=== PATIENT | male | born 1950 | race Caucasian/White ===

== ENCOUNTER 2022-03-09 09:39 | Emergency (ER) | payer MEDICARE, SELFPAY ==
[2022-03-09 10:37] VITALS: BP 175/81; PULSE 60; RESP 20; TEMP 36.8; O2SAT 98; BMI 38.0
--- NOTE | 2022-03-09 10:42 | DI.RAD.S_ITS ---
PROCEDURE: XR FOOT LT MIN 3V INDICATIONS: fall TECHNIQUE: 3 views of the foot were acquired. COMPARISON: None. FINDINGS: Bones: No acute appearing fractures or dislocations. No suspicious bony lesions. The medial navicular bone demonstrates an unusual appearance, with an apparent partially fused os tibiale externum. There is focal prominent degenerative change seen of the 1st metatarsophalangeal joint, with prominent joint space narrowing with osteophyte formation, including mild fragmentation. Soft tissues: No tibiotalar joint effusion. Achilles tendon appears normal. IMPRESSION: Negative for acute fracture. 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 Abnormal navicular bone, with a partially fused os tibiale externum. Dictated by: Bola Parrish M.D. on 03/09/2022 at 10:24 Approved by: Bola Parrish M.D. on 03/09/2022 at 10:25
[2022-03-09 11:18] VITALS: BP 150/65; PULSE 60; RESP 14; TEMP 37; O2SAT 97
--- NOTE | 2022-03-09 13:33 | ED.LOWEXIN ---
HPI - Extremity Injury (Lower) <BEBA Guzman - Last Filed: 03/09/22 14:51> General Chief Complaint: Trauma Stated Complaint: fall,Left foot injury Time Seen by Provider: 03/09/22 13:04 Source: patient Mode of arrival: Family Vehicle History of Present Illness HPI Narrative: This is a 71-year-old gentleman who presents to the emergency department complaining of left foot injury from a fall he had 3 days ago and states it was in the middle the night and he does not remember what happened to his left foot. He complains of pain on the lateral aspect and with bearing weight, states that he has been taking ibuprofen and his pain is still there, denies history of diabetes, denies open wound, states he has a history of athlete's foot but states it is under control. Denies any tenderness to the skin, history of neuropathy, sensation changes, or other abnormality. He is traveling, states that when he walks on his left foot it is painful in the ball of his foot and along the lateral aspect. Related Data Previous Rx's Medication Instructions Recorded hydrocodone 5 mg-acetaminophen 325 1 tab PO BID #10 tabs 03/09/22 mg tablet Allergies Allergy/AdvReac Type Severity Reaction Status Date / Time No Known Drug Allergies Allergy Verified 03/09/22 10:36 Review of Systems <BEBA Guzman - Last Filed: 03/09/22 14:51> Review of Systems ROS Unobtainable: All systems reviewed & are unremarkable except as noted in HPI and below Patient History <BEBA Guzman - Last Filed: 03/09/22 14:51> Social History Smoking Status: Former smoker Smoking Status: Former smoker alcohol intake frequency: 0-2 drinks per day Substance Use Type: does not use Exam <BEBA Guzman Last Filed: 03/09/22 14:51> Narrative Exam Narrative: Reviewed vitals signs and nursing notes. General: cooperative, comfortable, in no acute distress, well groomed MSK: moves all extremities, neurovascularly intact, no weakness, normal tone, patient is obese, left lateral foot with tenderness over the proximal 5th metatarsal head without crepitus, bogginess, wound, blister, or erythema. Mild ecchymosis present to the plantar aspect, patient has been sitting upright in a chair with dependent foot for many hours in the waiting room. Neurovascularly intact, PT and DP pulses are 2+, there is fungal infection of the toenails, no wound associated with. Brisk cap refill Skin: brisk capillary refill, without pallor or erythema Neuro: normal speech and cognition, A&O x3, ambulatory, clear speech Psych: mental status is grossly normal, congruent mood, normal affect, pleasant and cooperative Initial Vital Signs Initial Vital Signs: Vital Signs Temperature 98.2 F 03/09/22 10:37 Pulse Rate 60 03/09/22 10:37 Respiratory Rate 20 03/09/22 10:37 Blood Pressure 175/81 H 03/09/22 10:37 Pulse Oximetry 98 03/09/22 10:37 Oxygen Delivery Method 03/09/22 10:37 <Cherry Morales DO - Last Filed: 03/10/22 12:46> Initial Vital Signs Initial Vital Signs: Vital Signs Temperature 98.2 F 03/09/22 10:37 Pulse Rate 60 03/09/22 10:37 Respiratory Rate 20 03/09/22 10:37 Blood Pressure 175/81 H 03/09/22 10:37 Pulse Oximetry 98 03/09/22 10:37 Oxygen Delivery Method 03/09/22 10:37 Procedures <BEBA Guzman - Last Filed: 03/09/22 14:51> Orthopedic Splinting/Casting Injury #1: Lower Extremity Injury Location: foot Lower Extremity Immobilizer: post-op shoe Post splinting neuro exam: intact and no change Post splinting vascular exam: no change Placed by: Nursing Additional Comments: The ortho shoe improved based and pain Course <BEBA Guzman - Last Filed: 03/09/22 14:51> Orders Ordered: Discontinued Medications Hydrocodone Bitart/Acetaminophen (Hydrocodone/Acet 5/325 Tablet) 1 tab PO NOW ONE Stop: 03/09/22 13:34 Last Admin: 03/09/22 13:45 Dose: 1 tab Documented By: RB Ketorolac Tromethamine (Ketorolac 30 Mg/Ml Vial) 15 mg IM NOW ONE Stop: 03/09/22 13:33 Last Admin: 03/09/22 13:45 Dose: 15 mg Documented By: RB Vital Signs Vital signs: Vital Signs - 8 hr 03/09/22 10:37 03/09/22 11:18 03/09/22 13:58 Temperature 98.2 F 98.6 F 98.0 F Pulse Rate 60 60 60 Respiratory Rate 20 14 Blood Pressure 175/81 H 150/65 H 149/67 H Pulse Oximetry 98 97 98 Oxygen Delivery Method Room Air Room Air Room Air <Cherry Morales DO - Last Filed: 03/10/22 12:46> Orders Ordered: Discontinued Medications Hydrocodone Bitart/Acetaminophen (Hydrocodone/Acet 5/325 Tablet) 1 tab PO NOW ONE Stop: 03/09/22 13:34 Last Admin: 03/09/22 13:45 Dose: 1 tab Documented By: RB Ketorolac Tromethamine (Ketorolac 30 Mg/Ml Vial) 15 mg IM NOW ONE Stop: 03/09/22 13:33 Last Admin: 03/09/22 13:45 Dose: 15 mg Documented By: RB Vital Signs Vital signs: Vital Signs - 8 hr 03/09/22 10:37 03/09/22 11:18 03/09/22 13:58 Temperature 98.2 F 98.6 F 98.0 F Pulse Rate 60 60 60 Respiratory Rate 20 14 Blood Pressure 175/81 H 150/65 H 149/67 H Pulse Oximetry 98 97 98 Oxygen Delivery Method Room Air Room Air Room Air MDM - Extremity Injury (Lower) <BEBA Guzman - Last Filed: 03/09/22 14:51> Imaging Data Extremity x-ray #1: Radiologist's Impression: PROCEDURE:? XR FOOT LT MIN 3V ? INDICATIONS:? fall ? TECHNIQUE:? 3 views of the foot were acquired.? ? COMPARISON:? None. ? FINDINGS:? ? Bones:? No acute appearing fractures or dislocations.? No suspicious bony lesions.? ? The medial navicular bone demonstrates an unusual appearance, with an apparent partially fused os tibiale externum. ? There is focal prominent degenerative change seen of the 1st metatarsophalangeal joint, with prominent joint space narrowing with osteophyte formation, including mild fragmentation. ? Soft tissues:? No tibiotalar joint effusion.? Achilles tendon appears normal.? ? ? IMPRESSION:? Negative for acute fracture. ? 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 ? Abnormal navicular bone, with a partially fused os tibiale externum. ? ? Dictated by: Bola Parrish M.D. on 03/09/2022 at 10:24 ? ? Approved by: Bola Parrish M.D. on 03/09/2022 at 10:25 ? [facility] Narrative Medical decision making narrative: This is a 71-year-old gentleman presents emergency department after a fall he had 3 days ago injuring his left foot. X-rays negative for acute fracture, prominent focal 1st metatarsophalangeal joint degenerative changes. 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 Patient was nontender over this area, dorsiflexion and plantar extension intact, he is neurovascularly intact, without open wound, or changes to range of motion. Patient was fitted in orthopedic shoe, encouraged to follow-up with Podiatry and his PCP when he gets home next week and to elevate, use NSAIDs, ice, Tylenol as needed for his pain. He was given a prescription hydrocodone to use as needed. Patient is appropriate and amenable to discharge home. Vital signs are stable on repeat examination is unremarkable. Patient has been informed of results. Patient has been given strict return to ER precautions for any new or worsening symptoms. Patient understands to follow up closely with outpatient providers as instructed. Patient understands plan and agrees to discharge home. All questions and concerns answered at this time. Discharge Plan Departure Patient Disposition: Home Clinical Impression: Fall Qualifiers: Encounter type: initial encounter Qualified Code(s): W19.XXXA - Unspecified fall, initial encounter Foot sprain Qualifiers: Encounter type: initial encounter Laterality: left Qualified Code(s): S93.602A - Unspecified sprain of left foot, initial encounter Instructions: DI for Foot Sprain Activity Restrictions/Additional Instructions: *You have been diagnosed with [a left foot sprain] X-ray does not show any acute findings in your left foot. This is most likely tendon and ligament injury which takes 1-2 weeks typically to heal. Please take ibuprofen 600 mg every 6 hours with 650 mg of Tylenol, please stay hydrated, use your ortho shoe for the next 1-2 weeks while ambulating, this will help reduce further strain on those ligaments and tendons. Please use pain medicine as needed for breakthrough pain, your prescription is available [facility]. I hope you feel better soon, please follow-up with Podiatry when you get back home if you have ongoing foot pain, they can make you custom orthotics and repeat your evaluation to see if there is any new or progressive injury. *Please continue to take your regular medications as directed. [ x] New medication prescriptions sent to your pharmacy: [[facility] ] [ ] New medication written as a paper prescription [ ] No new medications given *Please follow up with your primary care provider in 2-3 days, call for an appointment. Let them know you were seen in the Emergency Department and that we asked that you be seen for follow-up. We will electronically transmit a record of today's note if your PCP is in our system *If you do not have a primary care provider please contact [phone] to establish care with one of the [facility] primary care providers. *Return to Emergency Department if you should have any new, worsening, or concerning symptoms, such as [fever greater than 101F, chills, worsening pain, persistent vomiting or other bothersome symptoms]. Prescriptions: New hydrocodone-acetaminophen 5-325 mg tablet 1 tab PO BID Qty: 10 0RF Visit Report Forms: Patient Portal/API <Cherry Morales, DO - Last Filed: 03/10/22 12:46> Cosign ED Attending Nuraature Attestation: I was immediately available in the department for consultation. Documentation has been reviewed.
[2022-03-09] MEDS: KETOROLAC 30 MG/ML VIAL 15 MG IM (13:45)
[2022-03-09] MEDS: HYDROCODONE/ACET 5/325 TABLET 1 TAB PO (13:45)
[2022-03-09 13:58] VITALS: BP 149/67; PULSE 60; TEMP 36.7; O2SAT 98
== END 2022-03-09 14:07 | disposition home or self-care (01) ==
PROVIDERS: Emergency Provider Nurse Practitioner Critical Care Medicine
DX: S93.602A Unspecified sprain of left foot, initial encounter (principal); W18.30XA Fall on same level, unspecified, initial encounter
CPT/HCPCS: 73630; 96372; 99283; 99284; J1885